=== PATIENT | male | born 1935 | race Caucasian/White ===

== ENCOUNTER 2021-10-06 13:44 | Emergency (ER) | payer MEDICARE, SELFPAY ==
[2021-10-06 14:04] VITALS: BP 108/67; PULSE 94; RESP 16; TEMP 36.9; O2SAT 95
[2021-10-06 15:46] LABS: Basophils % 0.4 %; Eosinophils % 0.4 %; Hematocrit 37.5 % (42.0-52.0); Lymphocytes # 1.6 10^3/uL (0.8-4.8); Mean Corpuscular HGB Conc 34.7 g/dL (30.0-36.0); Mean Corpuscular Hemoglobin 33.9 pg (28.0-34.0); Mean Corpuscular Volume 97.7 fl (80-94); Mean Platelet Volume 8.5 fL (7.4-10.4); Monocytes # 0.7 10^3/uL (0.2-0.9); Monocytes % 7.9 %; Neutrophils # 6.01 10^3/uL (1.8-7.7); Neutrophils % 71.9 %; Nucleated Red Blood Cells % 0 %; Platelet Count 246 10^3/cmm (130-400); Red Blood Count 3.84 10^6/uL (4.1-5.3); Red Cell Distribution Width 12.4 % (12.1-15.1); White Blood Count 8.4 10^3/uL (4.0-10.0)
[2021-10-06 15:55] LABS: Alanine Aminotransferase 22 U/L (0-41); Albumin Level 2.7 g/dL (3.5-5.2); Alkaline Phosphatase 76 IU/L (40-130); Anion Gap 14.5 (5-19); Aspartate Amino Transferase 31 U/L (0-40); Blood Urea Nitrogen 10 mg/dL (8-23); Calcium 7.6 mg/dL (8.5-10.5); Carbon Dioxide 25 mmol/L (22-29); Chloride 101 mmol/L (98-107); Glucose 67 mg/dL (65-115); Osmolality Calculated 281 mOsm/kg (285-295); Potassium 3.5 mmol/L (3.5-5.1); Sodium 137 mmol/L (136-145); Total Bilirubin 0.6 mg/dL (0.15-1.2); Total Protein 5.7 g/dL (6.6-8.7)
[2021-10-06 16:00] LABS: Lactate (Lactic Acid level) 1.5 mmol/L (0.5-2.2)
== END 2021-10-06 17:23 | disposition left against medical advice (07) ==
LOC: ER 13:51
PROVIDERS: Physician Assistant; Emergency Provider Family Medicine
DX: Z53.21 Procedure and treatment not carried out due to patient leaving prior to being seen by health care provider (principal)
CPT/HCPCS: 36415; 80053; 83605; 85025

== ENCOUNTER 2024-06-26 11:00 | Observation (INO) | payer MEDICARE, SELFPAY ==
[2024-06-26] VITALS (9 sets, daily range): BP systolic 117–141; BP diastolic 55–80; PULSE 84–93; RESP 14–18; TEMP 36.5–36.8; O2SAT 93–98
--- NOTE | 2024-06-26 11:04 | CT_ITS ---
WS: [id number] CT CHEST, ABDOMEN AND PELVIS WITH CONTRAST HISTORY: fall TECHNIQUE: Contiguous 5 mm axial imaging performed through the chest, abdomen and pelvis with IV cont rast, oral contrast has not been provided. Coronal and sagittal reformats chest. Coronal and sagittal reformats through the abdomen and pelvis. All CT scans at [facility] use at least one of the se dose optimization techniques: automated exposure control; mA and/or kV adjustment per patient size (includes targeted exams where dose is matched to clinical indication); or iterative reconstruction. CONTRAST: Omnipaque 350; 100 mL IV. DLP: 901.22 mGy.cm COMPARISON: None available. Chest CT: Lungs are distorted by rotation. Multi lobar areas of opacification and nodularity. No pneu mothorax or pulmonary contusion. No significant pleural effusion. Heart is slightly enlarged with mil d atherosclerosis aorta. No adenopathy. Fluid in the esophagus distal to the carey. Bones are osteop enic. No acute appearing rib fractures are identified. Increase in thoracic kyphosis. Severe plana co mpression fracture at T9 and 50% compression fracture at T11. Age-indeterminate but no paravertebral soft tissue hematomas or edema identified to suggest these are acute. Abdomen CT: Normal appearance of the liver and spleen and gallbladder. Mildly atrophic pancreas. No a drenal mass. No renal obstruction. Moderate atherosclerosis aorta. No GI tract obstruction. No mesent alan injury. No free fluid or adenopathy. Pelvic CT: Well-distended urinary bladder. Artifact through the pelvis secondary to the LEFT hip pros thesis. Partially healed fracture LEFT inferior pubic rami. Severe compression fracture at L2 and L4. Age-indeterminate but no surrounding edema. Patient is sign ificantly rotated causing deformity of the spine and abdominal structures. CT/CT chest abdpel w/*[id number] IMPRESSION: 1. No acute abdominal or pelvic abnormalities are identified. 2. Bilateral pulmonary opacifications, multi lobar. May be related to pneumoni a or early neoplasm. This can be followed up after treatment for pneumonia in 3 to 4 months if clinically thought necessary. 3. Multiple thoracic and lumbar spine fractures are age-indeterminate. These h ave not been imaged before but there is no adjacent edema or hematoma identifie d. The most concerning is at the L2 level. No significant retropulsion. No abida tional fractures. 4. No edema or mesenteric injury identified.
--- NOTE | 2024-06-26 11:04 | XRR_ITS ---
PROCEDURE INFORMATION: Exam: XR Chest Exam date and time: 06/26/2024 12:35 PM Age: 88 years old Clinical indication: Injury or trauma; Fall; Blunt trauma (contusions or hematomas); Additional info: AMS TECHNIQUE: Imaging protocol: Radiologic exam of the chest. Views: 1 view. COMPARISON: No relevant prior studies available. FINDINGS: Lungs: Coarsened pulmonary interstitium. Suboptimal pulmonary expansion with associated accentuation of bronchovascular markings. Pleural spaces: No pleural effusion. Heart/Mediastinum: Cardiomediastinal contours accentuated by low lung volumes and AP technique. Bones/joints: Right 7th lateral rib fracture. There are other possible rib fractures with assessment limited by bony overlap. Other findings: Patient is rotated limiting assessment. XR/XR chest 1V portable [id number] IMPRESSION: Right lateral 7th rib fracture with possible other rib fractures as well. Dedicated rib views or CT recommended further assessment if clinically warranted. No acute cardiopulmonary disease given technique.
--- NOTE | 2024-06-26 11:04 | CT_ITS ---
WS: [id number] CT CERVICAL SPINE HISTORY: fall TECHNIQUE: Contiguous 2.0 mm axial imaging performed through the entire cervical spine. Sagittal and coronal reformats also performed. All CT scans at [facility] use at least one of these dose o ptimization techniques: automated exposure control; mA and/or kV adjustment per patient size (include s targeted exams where dose is matched to clinical indication); or iterative reconstruction. DLP: 1796.54 mGy.cm COMPARISON: None available. Marked increase in the cervical lordosis. Craniocervical junction is normal. Facet joints are narrowe d but otherwise normally aligned. 2 mm retrolisthesis of C3. No acute fracture. Small osteophytes katie ng the anterior endplates. Bilateral facet joint arthropathy. No acute disc protrusions or compromise of the central canal. Lung apices are clear. Paraspinal soft tissues are normal. CT/CT cervical spin wo con* [id number] IMPRESSION: No acute cervical spine fracture. Marked increase in lordosis.
--- NOTE | 2024-06-26 11:04 | CT_ITS ---
WS: [id number] CT HEAD NONCONTRAST HISTORY: fall TECHNIQUE: Contiguous axial imaging performed through the brain in 2.5 mm imaging. Bone and soft tiss ue windows. Sagittal and coronal reformats reviewed. All CT scans at [facility] use at least one of these dose optimization techniques: automated exposure control; mA and/or kV adjustment per pa tient size (includes targeted exams where dose is matched to clinical indication); or iterative recon struction. DLP: 1796.54 mGy.cm COMPARISON: 07/10/2011 No acute intracranial hemorrhage, midline shift or mass effect. 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 Severe cerebellar atrophy. Ventricles: Normal size with no hydrocephalus. No inferior displacement of the cerebellar tonsils. Paranasal sinuses: As visualized are clear. Mastoid air cells: Well pneumatized. Calvarium and scalp: Skull is intact with no soft tissue edema or swelling. Increased density in the LEFT globe. Suspect prosthesis. CT/CT head wo con* [id number] IMPRESSION: 1. No acute intracranial hemorrhage or edema. 2. 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 No acute process identified.
--- NOTE | 2024-06-26 11:04 | XRR_ITS ---
PROCEDURE INFORMATION: Exam: XR Right Hip Exam date and time: 06/26/2024 12:34 PM Age: 88 years old Clinical indication: Injury or trauma; Fall; Blunt trauma (contusions or hematomas); Bilateral; Hip; Additional info: Fall, changed to bilateral charge TECHNIQUE: Imaging protocol: Radiologic exam of the right hip. Views: 4 or more views of hip with pelvis when performed. COMPARISON: No relevant prior studies available. FINDINGS: Bones/joints: Mild degenerative change of the right hip. Left bipolar hip replacement and incompletely imaged fixation plate and screws of the femur extending into the shaft. Indeterminate left inferior pubic ramus given obliquities presented. No definite acute fracture seen. Soft tissues: Vascular calcifications noted in the soft tissues. XR/XR hip BI 3-4V wo/w pel [id number] IMPRESSION: No definite acute fracture seen. Indeterminate left inferior pubic ramus secondary to technique. Repeat left hip views could be performed for further assessment if clinically warranted.
--- NOTE | 2024-06-26 11:07 | ED_ITS ---
HPI - Fall 2 General: Chief Complaint: Extremity Injury, Lower Stated Complaint: left hip pain, fall Time Seen by Provider: 06/26/24 11:00 Source: EMS Mode of arrival: EMS Limitations: altered mental status History of Present Illness: 88-year-old male is here from home after a fall per EMS he had fell and has been quite confused he did appear to have bilateral hip pain per EMS family states he has been not eating or drinking throughout the week and is increasingly became more altered. At his baseline he states that he gets up and takes care of himself. He is awake but will not answer any questions is extremely confused. Related Data Home Medications Medication Instructions Recorded Confirmed ibuprofen 200 mg tablet (Advil) 200 mg PO Q6H PRN prn pain 06/26/24 06/26/24 oxycodone-acetaminophen 5 mg-325 1 tab PO PRN 06/26/24 06/26/24 mg tablet Allergies Allergy/AdvReac Type Severity Reaction Status Date / Time No Known Allergies Allergy Verified 10/06/21 14:07 Review of Systems 2 General: Reports: ROS unobtainable due to mental status Physical Exam 2 Const: COMMON NORMALS: negative for patient oriented x3 GENERAL APPEARANCE: frail appearing ORIENTATION/CONSCIOUSNESS: not oriented to person, not oriented to place and not oriented to time HENMT: COMMON NORMALS: normocephalic and atraumatic HEAD & SCALP: n ormocephalic and atraumatic Eye: COMMON NORMALS: Equal, round and reactive pupils present and EOMs intact bilaterally PUPIL: Yes Equal, round and reactive pupils present Neck/C-Spine: COMMON NORMALS: full ROM and supple Chest: COMMONS NORMALS: normal inspection of the chest Resp: COMMON NORMALS: normal respiratory effort, No retractions, No use of accessory muscles and clear to auscultation bilaterally AUSCULTATION: clear to auscultation bilaterally Cardio: COMMON NORMALS: regular rate, regular rhythm and No murmurs present (Cardio) RATE: regular rate RHYTHM: regular rhythm GI: COMMON NORMALS: Normal to inspection, nondistended, normoactive bowel sounds present, Soft to palpation, non-tender and no masses PALPATION: Yes Soft to palpation Extremity: COMMON NORMALS: normal to inspection and full ROM Neuro: COMMON NORMALS: negative for patient oriented x3 S ENSORIUM/ORIENTATION: No oriented to person, No oriented to place and No oriented to time Psych: COMMON NORMALS: cooperative; negative for mental status grossly normal Skin: COMMON NORMALS: no rashes or lesions noted and no wounds GENERAL SKIN EXAM: no rashes or lesions noted Course 2 Vital Signs: Vital signs: Vital Signs Temperature 98.3 F 06/26/24 11:02 Pulse Rate 93 06/26/24 15:35 Respiratory Rate 15 06/26/24 12:53 Blood Pressure 119/55 06/26/24 15:35 Pulse Oximetry 93 06/26/24 15:35 Oxygen Delivery Me thod Room Air 06/26/24 15:35 MDM - Fall Medical Decision Making Patient presents here with altered mental status he has been quite altered here has had weakness along with falls CT scan of his head was normal CT abdomen chest showed lumbar and thoracic spine fracture did speak to the hospitalist will admit at this time for his altered mental status. Medical Records I reviewed the patient's medical records. Lab Data I reviewed the patient's lab results. 06/26/24 13:10 06/26/24 13:10 Radiology Impressions Cervical Spine CT 06/26/24 11:04 IMPRESSION: No acute cervical spine fracture. Marked increase in lordosis. Chest X-Ray 06/26/24 11:04 IMPRESSION: Right lateral 7th rib fracture with possible other rib fractures as well. Dedicated rib views or CT recommended further assessment if clinically warranted. No acute cardiopulmonary disease given technique. Chest/Abdomen/Pelvis CT 06/26/24 11:04 IMPRESSION: 1. No acute abdominal or pelvic abnormalities are identified. 2. Bilateral pulmonary opacifications, multi lobar. May be related to pneumonia or early neoplasm. This can be followed up after treatment for pneumonia in 3 to 4 months if clinically thought necessary. 3. Multiple thoracic and lumbar spine fractures are age-indeterminate. These have not been imaged before but there is no adjacent edema or hematoma identified. The most concerning is at the L2 level. No significant retropulsion. No additional fractures. 4. No edema or mesenteric injury identified. Head CT 06/26/24 11:04 IMPRESSION: 1. No acute intracranial hemorrhage or edema. 2. 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 No acute process identified. Hip/Pelvis X-Ray 06/26/24 11:04 IMPRESSION: No definite acute fracture seen. Indeterminate left inferior pubic ramus secondary to technique. Repeat left hip views could be performed for further assessment if clinically warranted. Laboratory Results WBC 9.54 10^3/uL (3.29-11.43) 06/26/24 13:10 RBC 4.38 10^6/uL (3.85-5.65) 06/26/24 13:10 Hgb 14.40 g/dL (11.27-16.99) 06/26/24 13:10 Hct 42.3 % (37-53) 06/26/24 13:10 MCV 96.6 fl (82-101) 06/26/24 13:10 MCH 32.9 pg (27-33) 06/26/24 13:10 MCHC 34.0 g/dL (30-55) 06/26/24 13:10 RDW 12.6 % (12.1-15.1) 06/26/24 13:10 Plt Count 294 10^3/cmm (157-399) 06/26/24 13:10 MPV 8.5 fL (7.4-10.4) 06/26/24 13:10 Neut % (Auto) 78.5 % 06/26/24 13:10 Lymph % (Auto) 8.9 % 06/26/24 13:10 [place] % (Auto) 11.7 % 06/26/24 13:10 Eos % (Auto) 0.2 % 06/26/24 13:10 Baso % (Auto) 0.3 % 06/26/24 13:10 Neut # (Auto) 7.48 10^3/uL (1.8-7.7) 06/26/24 13:10 Lymph # (Auto) 0.9 10^3/uL (0.8-4.8) 06/26/24 13:10 [place] # (Auto) 1.1 10^3/uL (0.2-0.9) H 06/26/24 13:10 Eos # (Auto) 0.0 10^3/uL (0.0-0.8) 06/26/24 13:10 Baso # (Auto) 0.0 10^3/uL (0.0-0.1) 06/26/24 13:10 Nucleated RBC % (auto) 0 % 06/26/24 13:10 Nucleated RBCs # 0.0 /100WBC 06/26/24 13:10 PT 14.40 SECONDS (12.1-14.9) 06/26/24 13:10 INR 1.08 (0.8-1.2) 06/26/24 13:10 Sodium 139 mmol/L (136-145) 06/26/24 13:10 Potassium 4.5 mmol/L (3.5-5.1) 06/26/24 13:10 Chloride 104 mmol/L (98-107) 06/26/24 13:10 Carbon Dioxide 23 mmol/L (22-29) 06/26/24 13:10 Anion Gap 16.5 (5-19) 06/26/24 13:10 BUN 13 mg/dL (8-23) 06/26/24 13:10 Creatinine 0.5 mg/dL (0.7-1.2) L 06/26/24 13:10 GFR Calculation Not Reportable 06/26/24 13:10 Glucose 95 mg/dL (65-115) 06/26/24 13:10 Calculated Osmolality 288 mOsm/kg (285-295) 06/26/24 13:10 Calcium 8.4 mg/dL (8.5-10.5) L 06/26/24 13:10 Magnesium 1.9 mg/dL (1.7-2.3) 06/26/24 13:10 Total Bilirubin 0.5 mg/dL (0.15-1.2) 06/26/24 13:10 AST 46 U/L (0-40) H 06/26/24 13:10 ALT 17 U/L (0-41) 06/26/24 13:10 Alkaline Phosphatase 62 U/L (40-130) 06/26/24 13:10 Total Protein 6.6 g/dL (6.6-8.7) 06/26/24 13:10 Albumin 3.1 g/dL (3.5-5.2) L 06/26/24 13:10 Globulin 3.5 g/dL (1.3-4.6) 06/26/24 13:10 Lipase 15 U/L (13-60) 06/26/24 13:10 TSH 2.27 uIU/mL (0.27-4.20) 06/26/24 13:10 Urine Color Yellow (Yellow) 06/26/24 12:03 Urine Appearance Clear (CLEAR) 06/26/24 12:03 Urine pH 7 (5-7) 06/26/24 12:03 Ur Specific [place] 1.015 (1.005-1.030) 06/26/24 12:03 Urine Protein Neg (Negative) 06/26/24 12:03 Urine Glucose (UA) Norm (Normal) 06/26/24 12:03 Urine Ketones 1+ (Negative) H 06/26/24 12:03 Urine Blood Neg (Negative) 06/26/24 12:03 Urine Nitrate Negative (Negative) 06/26/24 12:03 Urine Bilirubin Neg (Negative) 06/26/24 12:03 Urine Urobilinogen Norm mg/dL (Negative) 06/26/24 12:03 Ur Leukocyte Esterase Negative (Negative) 06/26/24 12:03 Amorphous Sediment Not Reportable 06/26/24 12:03 Urine Opiates Screen Negative ng/mL (Negative) 06/26/24 12:03 Ur Barbiturates Screen Negative ng/mL (Negative) 06/26/24 12:03 Ur Phencyclidine Scrn Negative ng/mL (Negative) 06/26/24 12:03 Ur Amphetamines Screen Negative ng/mL (Negative) 06/26/24 12:03 U Benzodiazepines Scrn Negative ng/mL (Negative) 06/26/24 12:03 Urine Cocaine Screen Negative ng/mL (Negative) 06/26/24 12:03 U Marijuana (THC) Screen Positive ng/mL (Negative) H 06/26/24 12:03 All radiology interpretation(s) finalized by discharge Discharge Plan Discharge Patient Disposition: Admitted As Inpatient Clinical Impression: Altered mental status, Weakness, Fall, Fracture of thoracic spine Condition: Stable Prescriptions: No Action oxycodone-acetaminophen 5-325 mg tablet 1 tab PO PRN Advil 200 mg Tablet 200 mg PO Q6H PRN (Reason: prn pain ) Coding Level of Care Code ED Parlor Maid for Julisa Dodd
[2024-06-26] MEDS: sodium chloride 0.9% 1,000 ML 999 ML IV (11:42)
--- NOTE | 2024-06-26 12:14 | PC.NURSE ---
pt continues to rip off vs equipment.
[2024-06-26 12:20] LABS: Add Urine Microscopic? NO
--- NOTE | 2024-06-26 12:23 | PC.NURSE ---
this nurse went to do a straight cath, pt pullup was soaked with foul smelling urine, pt was changed and put into dry brief. pt then used handheld urinal and was continent of urine for one void at this time.
[2024-06-26 12:26] LABS: Bilirubin Urine Neg (Negative); Blood Urine Neg (Negative); Glucose Urine UA Norm (Normal); Ketones Urine 1+ (Negative); Leukocyte Esterase Urine Negative (Negative); Nitrate Urine Negative (Negative); Protein Urine Neg (Negative); Specific Gravity, Urine 1.015 (1.005-1.030); Urine Appearance Clear (CLEAR); Urine Color Yellow (Yellow); Urobilinogen Urine Norm (Negative); pH Urine 7 (5-7)
[2024-06-26 12:27] LABS: Charge for UA Resulting for Rev
[2024-06-26] MEDS: ondansetron 2 mg/ML SDV 2 mL 4 MG IVP (12:49)
[2024-06-26] MEDS: morphine 4 mg/mL SDV 1 mL IVP (12:50)
[2024-06-26 13:16] LABS: Basophils % 0.3 %; Eosinophils % 0.2 %; Hematocrit 42.3 % (37-53); Lymphocytes # 0.9 10^3/uL (0.8-4.8); Lymphocytes % 8.9 %; Mean Corpuscular Hemoglobin 32.9 pg (27-33); Mean Corpuscular Volume 96.6 fl (82-101); Mean Platelet Volume 8.5 fL (7.4-10.4); Monocytes # 1.1 10^3/uL (0.2-0.9); Monocytes % 11.7 %; Neutrophils # 7.48 10^3/uL (1.8-7.7); Neutrophils % 78.5 %; Nucleated Red Blood Cells % 0 %; Platelet Count 294 10^3/cmm (157-399); Red Blood Count 4.38 10^6/uL (3.85-5.65); Red Cell Distribution Width 12.6 % (12.1-15.1); White Blood Count 9.54 10^3/uL (3.29-11.43)
[2024-06-26 13:30] LABS: INR 1.08 (0.8-1.2)
[2024-06-26 13:38] LABS: Alanine Aminotransferase 17 U/L (0-41); Albumin Level 3.1 g/dL (3.5-5.2); Alkaline Phosphatase 62 U/L (40-130); Blood Urea Nitrogen 13 mg/dL (8-23); Calcium 8.4 mg/dL (8.5-10.5); Carbon Dioxide 23 mmol/L (22-29); Chloride 104 mmol/L (98-107); Globulin 3.5 g/dL (1.3-4.6); Glucose 95 mg/dL (65-115); Lipase 15 U/L (13-60); Magnesium 1.9 mg/dL (1.7-2.3); Osmolality Calculated 288 mOsm/kg (285-295); Sodium 139 mmol/L (136-145); Thyroid Stimulating Hormone 2.27 uIU/mL (0.27-4.20); Total Bilirubin 0.5 mg/dL (0.15-1.2); Total Protein 6.6 g/dL (6.6-8.7)
[2024-06-26 13:39] LABS: Anion Gap 16.5 (5-19); Aspartate Amino Transferase 46 U/L (0-40); Potassium 4.5 mmol/L (3.5-5.1)
[2024-06-26] MEDS: iohexol 350 mg/mL 500 mL Btl (per mL) IV (14:33)
[2024-06-26 16:04] LABS: Amphetamines Screen Urine Negative (Negative); Barbiturates Screen Urine Negative (Negative); Benzodiazepines Screen Urine Negative (Negative); Cocaine Screen Urine Negative (Negative); Opiate Screen Urine Negative (Negative); PCP Screen Urine Negative (Negative); THC Screen Urine Positive (Negative)
[2024-06-26] MEDS: cefTRIAXone 1,000 mg SDV 1000 MG IVP (16:54)
--- NOTE | 2024-06-26 16:58 | P.HP_ITS ---
Providers/Chief Complaint 2 Admitting Physician: Jake Monte MD Chief Complaint: left hip pain, fall History of Present Illness Jeff Cr is a 88 year old male formerly on hospice a couple of different times who was found down, at home around 6 AM. He seemed to be complaining of severe abdominal pain, but family could not tell. He certainly seem like he was in significant pain when they tried to move him. He had been sick about 3 weeks ago, and since then had more confusion than usual. He did have fevers with the COVID he had 3 weeks ago, but has not had any recently. No other falls other than the one that was not witnessed for which she was found this morning. They report no blood in stools, black or tarry stools. Daughter who is with him indicates she is his guardian. She reports he is more confused now as he got some morphine in the emergency department, and possibly some fentanyl in route. She does not think he is in any pain right now. In the emergency department he got some pain medicine, and an injection of ceftriaxone and Zithromax for possible pneumonia. Review of Systems 2 General: Reports: 10 or more systems reviewed and unremarkable except in HPI and below Medications/Allergies Home Medications Medication Instructions Recorded Confirmed Last Taken Type ibuprofen 200 mg tablet (Advil) 200 mg PO Q6H PRN prn pain 06/26/24 06/26/24 Unknown History oxycodone-acetaminophen 5 mg-325 1 tab PO PRN 06/26/24 06/26/24 Unknown History mg tablet Allergies Allergy/AdvReac Type Severity Reaction Status Date / Time No Known Allergies Allergy Verified 10/06/21 14:07 PFSH Acute 2 PFSH: Medical History History of alcohol use History of hip fracture Surgical History History of hernia repair Social History (Updated 06/26/24 @ 17:05 by Jake Monte MD) Smoking and tobacco/nicotine status: current every day tobacco/nicotine user smokeless tobacco Alcohol intake: current Vitals/I&O/Wt Last Vital Signs Temp 98.3 F 06/26/24 11:02 Pulse 93 06/26/24 15:35 Resp 15 09/19/24 12:53 BP 119/55 06/26/24 15:35 Pulse Ox 93 06/26/24 15:35 O2 Del Method Room Air 06/26/24 15:35 06/26/24 06/26/24 06/26/24 06:59 14:59 22:59 Intake Total 1000 / 1000 Balance 1000 / 1000 Physical Exam 2 Narrative: General Exam is white male, smiling, who does not seem to be in any pain currently laying in bed HEENT: Right pupil normal. Left esotropia. I suspect he has had surgery or intervention on this side or injury. Oropharynx clear, a dentulous Neck is supple Cardiovascular regular rate and rhythm with 2/6 systolic murmur Lungs clear no wheezing or crackles Abdomen is soft. I do not note any obvious tenderness but certainly difficult to tell exam is an incontinent male Extremities no cyanosis clubbing or edema Skin no rash Neuro no obvious focal deficits Data 06/26/24 13:10 06/26/24 13:10 Other Labs: I have ordered a B12 INR normal TSH normal LFTs normal with exception of AST 46 Calcium 8.4, albumin 3.1 Lipase 15 Urinalysis negative Urine drug screen positive for marijuana Hip and pelvis x-ray no definite acute fracture although indeterminate left inferior pubic ramus Head CT no acute findings, severe cerebellar atrophy Chest abdomen pelvis CT, bilateral pulmonary opacities cannot rule out pneumonia and multiple thoracic and lumbar spine compression fractures and fractures. A distended bladder is noted. Chest x-ray no infiltrate per my read CT cervical spine no fracture Blood culture was done Micro: Microbiology 06/26/24 16:15 Blood Culture - Preliminary Blood SPECIMEN COLLECTED 06/26/24 16:12 Blood Culture - Preliminary Blood SPECIMEN COLLECTED A&P Assessment and plan (1) Fall: Check CK Gentle hydration Fall precautions (2) Pain: Was complaining of abdominal or back pain but difficult to delineate now is confused after narcotic. Workup negative other than compression fractures of the thoracic and lumbar spine Follow expectantly, oxycodone for pain, Dilaudid for breakthrough pain. Therapy consultation At this point I do not think a back brace would make him hurt less (3) Thoracic compression fracture: Thoracic compression fractures, unknown age, no evidence of bone marrow edema Pain control as below (4) Lumbar vertebral fracture: Unknown age, worst at L2 No evidence of bone marrow edema Cannot completely rule out acute fracture Family not interested in surgery Pain control with Oxy IR, Dilaudid for breakthrough pain. (5) History of alcohol use: Patient with history of significant alcohol use. It is difficult to quantify his use currently. [facility] protocol Amended Ativan dose down (6) Advanced age: Plan Pulmonary infiltrates. This is likely related to his recent COVID. Check procalcitonin level. If negative, will not continue antibiotics started in the ER. Allow natural Lovenox for DVT prophylaxis Attestations 2 Medical Necessity Statement*: Will require less than 2 midnight stay for evaluation of pain, therapy evaluation, treatment of pain, determination of family expectations Diagnoses Fall W19.XXXA Pain R52 Thoracic compression fracture S22.000A Lumbar vertebral fracture S32.009A History of alcohol use Z87.898 Advanced age R54 Time Spent (min) 55
[2024-06-26] MEDS: azithromycin 500 MG in sodium chloride 0.9% 250 ML 250 MG IV (16:59)
[2024-06-26 17:31] LABS: Creatine Phosphokinase 991 U/L (39-308)
[2024-06-26 17:34] LABS: Procalcitonin 0.06 ng/mL (0-0.5)
[2024-06-26] MEDS: enoxaparin 40 mg/0.4 mL Syringe SUBCUT (18:17)
[2024-06-26] MEDS: sodium chloride 0.9% 1,000 ML 100 ML IV (18:17)
[2024-06-26] MEDS: acetaminophen 325 mg Tablet 650 MG PO (18:18)
[2024-06-26] MEDS: sennosides 8.6 mg Tablet 17.2 MG PO (18:18)
[2024-06-26 18:23] LABS: Vitamin B12 402 pg/mL (232-1245)
[2024-06-27] VITALS: BP 135/68; PULSE 83; RESP 14; TEMP 36.9; O2SAT 94
[2024-06-27 04:00] VITALS: BP 158/90; PULSE 78; RESP 16; TEMP 36.4; O2SAT 94
[2024-06-27 05:28] LABS: Basophils # 0.1 10^3/uL (0.0-0.1); Basophils % 0.8 %; Eosinophils # 0.1 10^3/uL (0.0-0.8); Eosinophils % 2.1 %; Hematocrit 45.8 % (37-53); Lymphocytes # 1.1 10^3/uL (0.8-4.8); Lymphocytes % 17.8 %; Mean Corpuscular HGB Conc 33.2 g/dL (30-55); Mean Corpuscular Hemoglobin 32.3 pg (27-33); Mean Corpuscular Volume 97.2 fl (82-101); Mean Platelet Volume 8.7 fL (7.4-10.4); Monocytes # 0.9 10^3/uL (0.2-0.9); Monocytes % 15.2 %; Neutrophils # 3.91 10^3/uL (1.8-7.7); Neutrophils % 63.8 %; Nucleated Red Blood Cells % 0 %; Platelet Count 317 10^3/cmm (157-399); Red Blood Count 4.71 10^6/uL (3.85-5.65); Red Cell Distribution Width 12.8 % (12.1-15.1); White Blood Count 6.13 10^3/uL (3.29-11.43)
[2024-06-27 05:58] LABS: Alanine Aminotransferase 19 U/L (0-41); Albumin Level 3.3 g/dL (3.5-5.2); Alkaline Phosphatase 68 U/L (40-130); Anion Gap 11.9 (5-19); Aspartate Amino Transferase 55 U/L (0-40); Blood Urea Nitrogen 8 mg/dL (8-23); Calcium 8.8 mg/dL (8.5-10.5); Carbon Dioxide 28 mmol/L (22-29); Chloride 101 mmol/L (98-107); Creatinine Clr Calc Pharmacy 45.7817; Globulin 3.9 g/dL (1.3-4.6); Glucose 76 mg/dL (65-115); Osmolality Calculated 281 mOsm/kg (285-295); Potassium 3.9 mmol/L (3.5-5.1); Sodium 137 mmol/L (136-145); Total Bilirubin 0.4 mg/dL (0.15-1.2); Total Protein 7.2 g/dL (6.6-8.7)
[2024-06-27 06:15] LABS: Creatine Phosphokinase 787 U/L (39-308)
[2024-06-27] MEDS: sodium chloride 0.9% 1,000 ML 100 ML IV (06:33)
[2024-06-27 08:00] VITALS: BP 151/76; PULSE 81; RESP 18; TEMP 36.4; O2SAT 96
[2024-06-27] MEDS: folic acid 1 mg Tablet PO (08:26)
[2024-06-27] MEDS: sennosides 8.6 mg Tablet 17.2 MG PO (08:26)
[2024-06-27] MEDS: thiamine 100 mg Tablet PO (08:26)
[2024-06-27 08:27] VITALS: RESP 16
[2024-06-27] MEDS: oxyCODONE 5 mg IR Tab/Cap PO (08:27)
[2024-06-27] MEDS: multivitamin therapeutic Tablet 1 TAB PO (08:27)
--- NOTE | 2024-06-27 11:01 | P.DS_ITS ---
Discharge Providers Date of Admission: 06/26/24 16:31 Date of Discharge: June 27, 2024 Attending Provider at Admission: Jake Monte MD Attending Provider at Discharge: Jake Monte MD Diagnoses at Discharge Discharge Diagnosis (1) Fall: Status: Acute (2) Pain: Status: Acute (3) Thoracic compression fracture: Status: Acute (4) Lumbar vertebral fracture: Status: Acute (5) History of alcohol use: Status: Acute (6) Advanced age: Status: Acute Reason for Visit Reason for Visit: left hip pain, fall Hospital Course Hospital Course Patient is an 88-year-old white male who was found down at home. He has very poor health, and has been on hospice twice. It was unknown if he had any significant injury but there was concern he was in significant pain. He received some pain medication in emergency department, and there was concern of him being altered. He got a CT scan of his head, neck, chest and abdomen without any clear delineation of an acute process. Multiple compression fractures were noted in his vertebral region, and it could not be guaranteed that anywhere near. CK was elevated consistent with mild rhabdo. He was admitted under an observation status, and closely monitored for pain. He was given some IV fluids for rehydration. The following day his CK had decreased. He had required occasional doses of p.o. pain medication. He was alert, and able to talk as well as eat. Physical therapy had seen him, and recommended Branden lift for continued care at home where family has private caregivers. At this point goal of care is to go back home, with private caregivers and have pain control. This has been achieved in the hospital. Family/guardian reported he would not want any significant surgeries or major interventions considering his age of 88 and comorbidities. He should follow-up with his primary care provider in 3 to 5 days. A prescription for oxycodone immediate release to use every 4 hours as needed for pain was given. Bladder scan was done in the hospital showing some urinary retention, but not significant enough to place a chronic indwelling catheter. Physical Exam Narrative: General Exam no distress Neck is supple Cardiovascular regular rate and rhythm Lungs clear Abdomen soft Extremities no cyanosis clubbing or edema Neuro: Makes good eye contact, hard of hearing, moves all extremities, vocalizes some wishes. Discharge Data Studies Completed and Pending Completed Studies During Hospitalization Category Date Time Status CT cervical spin wo con* [id number] Stat Cat Scan 06/26/24 11:[address] chest abdpel w/*[id number] Stat Cat Scan 06/26/24 11:[address] head wo con* [id number] Stat Cat Scan 06/26/24 11:04 Completed XR chest 1V portable [id number] Stat Exams 06/26/24 11:04 Completed XR hip BI 3-4V wo/w pel [id number] Stat Exams 06/26/24 11:04 Completed Pending at discharge Category Date Time Status Blood Culture Stat Lab 06/26/24 16:15 Results Radiology Impressions Cervical Spine CT 06/26/24 11:04 IMPRESSION: No acute cervical spine fracture. Marked increase in lordosis. Chest X-Ray 06/26/24 11:04 IMPRESSION: Right lateral 7th rib fracture with possible other rib fractures as well. Dedicated rib views or CT recommended further assessment if clinically warranted. No acute cardiopulmonary disease given technique. Chest/Abdomen/Pelvis CT 06/26/24 11:04 IMPRESSION: 1. No acute abdominal or pelvic abnormalities are identified. 2. Bilateral pulmonary opacifications, multi lobar. May be related to pneumonia or early neoplasm. This can be followed up after treatment for pneumonia in 3 to 4 months if clinically thought necessary. 3. Multiple thoracic and lumbar spine fractures are age-indeterminate. These have not been imaged before but there is no adjacent edema or hematoma identified. The most concerning is at the L2 level. No significant retropulsion. No additional fractures. 4. No edema or mesenteric injury identified. Head CT 06/26/24 11:04 IMPRESSION: 1. No acute intracranial hemorrhage or edema. 2. 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 No acute process identified. Hip/Pelvis X-Ray 06/26/24 11:04 IMPRESSION: No definite acute fracture seen. Indeterminate left inferior pubic ramus secondary to technique. Repeat left hip views could be performed for further assessment if clinically warranted. Laboratory Results WBC 6.13 10^3/uL (3.29-11.43) 06/27/24 05:03 RBC 4.71 10^6/uL (3.85-5.65) 06/27/24 05:03 Hgb 15.20 g/dL (11.27-16.99) 06/27/24 05:03 Hct 45.8 % (37-53) 06/27/24 05:03 MCV 97.2 fl (82-101) 06/27/24 05:03 MCH 32.3 pg (27-33) 06/27/24 05:03 MCHC 33.2 g/dL (30-55) 06/27/24 05:03 RDW 12.8 % (12.1-15.1) 06/27/24 05:03 Plt Count 317 10^3/cmm (157-399) 06/27/24 05:03 MPV 8.7 fL (7.4-10.4) 06/27/24 05:03 Neut % (Auto) 63.8 % 06/27/24 05:03 Lymph % (Auto) 17.8 % 06/27/24 05:03 [place] % (Auto) 15.2 % 06/27/24 05:03 Eos % (Auto) 2.1 % 06/27/24 05:03 Baso % (Auto) 0.8 % 06/27/24 05:03 Neut # (Auto) 3.91 10^3/uL (1.8-7.7) 06/27/24 05:03 Lymph # (Auto) 1.1 10^3/uL (0.8-4.8) 06/27/24 05:03 [place] # (Auto) 0.9 10^3/uL (0.2-0.9) 06/27/24 05:03 Eos # (Auto) 0.1 10^3/uL (0.0-0.8) 06/27/24 05:03 Baso # (Auto) 0.1 10^3/uL (0.0-0.1) 06/27/24 05:03 Nucleated RBC % (auto) 0 % 06/27/24 05:03 Nucleated RBCs # 0.0 /100WBC 06/27/24 05:03 PT 14.40 SECONDS (12.1-14.9) 06/26/24 13:10 INR 1.08 (0.8-1.2) 06/26/24 13:10 Sodium 137 mmol/L (136-145) 06/27/24 05:03 Potassium 3.9 mmol/L (3.5-5.1) 06/27/24 05:03 Chloride 101 mmol/L (98-107) 06/27/24 05:03 Carbon Dioxide 28 mmol/L (22-29) 06/27/24 05:03 Anion Gap 11.9 (5-19) 06/27/24 05:03 BUN 8 mg/dL (8-23) 06/27/24 05:03 Creatinine 0.6 mg/dL (0.7-1.2) L 06/27/24 05:03 GFR Calculation Not Reportable 06/27/24 05:03 Glucose 76 mg/dL (65-115) 06/27/24 05:03 Calculated Osmolality 281 mOsm/kg (285-295) L 06/27/24 05:03 Calcium 8.8 mg/dL (8.5-10.5) 06/27/24 05:03 Magnesium 1.9 mg/dL (1.7-2.3) 06/26/24 13:10 Total Bilirubin 0.4 mg/dL (0.15-1.2) 06/27/24 05:03 AST 55 U/L (0-40) H 06/27/24 05:03 ALT 19 U/L (0-41) 06/27/24 05:03 Alkaline Phosphatase 68 U/L (40-130) 06/27/24 05:03 Creatine Kinase 787 U/L (39-308) H* 06/27/24 05:03 Total Protein 7.2 g/dL (6.6-8.7) 06/27/24 05:03 Albumin 3.3 g/dL (3.5-5.2) L 06/27/24 05:03 Globulin 3.9 g/dL (1.3-4.6) 06/27/24 05:03 Lipase 15 U/L (13-60) 06/26/24 13:10 Vitamin B12 402 pg/mL (232-1245) 06/26/24 13:10 Procalcitonin 0.06 ng/mL (0-0.5) 06/26/24 13:10 TSH 2.27 uIU/mL (0.27-4.20) 06/26/24 13:10 Urine Color Yellow (Yellow) 06/26/24 12:03 Urine Appearance Clear (CLEAR) 06/26/24 12:03 Urine pH 7 (5-7) 06/26/24 12:03 Ur Specific [place] 1.015 (1.005-1.030) 06/26/24 12:03 Urine Protein Neg (Negative) 06/26/24 12:03 Urine Glucose (UA) Norm (Normal) 06/26/24 12:03 Urine Ketones 1+ (Negative) H 06/26/24 12:03 Urine Blood Neg (Negative) 06/26/24 12:03 Urine Nitrate Negative (Negative) 06/26/24 12:03 Urine Bilirubin Neg (Negative) 06/26/24 12:03 Urine Urobilinogen Norm mg/dL (Negative) 06/26/24 12:03 Ur Leukocyte Esterase Negative (Negative) 06/26/24 12:03 Amorphous Sediment Not Reportable 06/26/24 12:03 Urine Opiates Screen Negative ng/mL (Negative) 06/26/24 12:03 Ur Barbiturates Screen Negative ng/mL (Negative) 06/26/24 12:03 Ur Phencyclidine Scrn Negative ng/mL (Negative) 06/26/24 12:03 Ur Amphetamines Screen Negative ng/mL (Negative) 06/26/24 12:03 U Benzodiazepines Scrn Negative ng/mL (Negative) 06/26/24 12:03 Urine Cocaine Screen Negative ng/mL (Negative) 06/26/24 12:03 U Marijuana (THC) Screen Positive ng/mL (Negative) H 06/26/24 12:03 Vitals Last Vital Signs Temp 97.6 F 06/27/24 08:00 Pulse 81 06/27/24 08:00 Resp 16 06/27/24 08:27 BP 151/76 06/27/24 08:00 Pulse Ox 96 06/27/24 08:00 O2 Del Method Room Air 06/27/24 08:00 Discharge Plan Discharge Patient Disposition: Home Condition: Stable Prescriptions: New oxycodone 5 mg Tablet 5 mg PO Q4H PRN (Reason: Severe Pain) Qty: 20 0RF sennosides [senna] 8.6 mg Tablet 17.2 mg PO BID Qty: 60 0RF Continued Advil 200 mg Tablet 200 mg PO Q6H PRN (Reason: prn pain ) Discontinued oxycodone-acetaminophen 5-325 mg tablet 1 tab PO PRN Discharge Orders: Discharge Order (Routine); Ordered 06/27/24 Ordered By: Jake Monte Discharge Diet: Usual diet Discharge Activity: Resume usual activity Patient Instructions: Opioid Safety Activity Restrictions/Additional Instructions: Take all medicine as prescribed. Use oxycodone sparingly. Follow-up with primary care provider in 3 to 5 days Discharge Attestations Time Spent in Discharge Care*: greater than 30 min Quality Metrics Clinical Quality Measures [ No reported AMI, CVA or VTE this stay] Coding Level of Care Code 95920 Total time (in minutes) for Discharge: 32 Diagnoses Fall W19.XXXA Pain R52 Thoracic compression fracture S22.000A Lumbar vertebral fracture S32.009A History of alcohol use Z87.898 Advanced age R54
[2024-06-27 12:00] VITALS: BP 147/79; PULSE 65; RESP 18; TEMP 36.1; O2SAT 96
[2024-06-27 13:57] VITALS: BP 147/79; PULSE 65; RESP 18; TEMP 36.1; O2SAT 96
== END 2024-06-27 13:58 | disposition home or self-care (01) ==
LOC: ER 16:31 → MEDSURG 19:55
PROVIDERS: Admitting Provider Internal Medicine; Emergency Provider Emergency Medicine; Visit Provider Internal Medicine
DX: S22.000A Wedge compression fracture of unspecified thoracic vertebra, initial encounter for closed fracture (principal); S32.009A Unspecified fracture of unspecified lumbar vertebra, initial encounter for closed fracture; W19.XXXA Unspecified fall, initial encounter; Z87.898 Personal history of other specified conditions; R54 Age-related physical debility; R33.9 Retention of urine, unspecified; Z86.16 Personal history of COVID-19; F17.200 Nicotine dependence, unspecified, uncomplicated; M25.552 Pain in left hip; M25.551 Pain in right hip
CPT/HCPCS: 36415; 70450; 71045; 71260; 72125; 73502; 73522; 74177; 80053; 80306; 81003; 82550; 82607; 83690; 83735; 84145; 84443; 85025; 85610; 87040; 96361; 96365; 96372; 96375; 97530; 99285; G0378; J0456; J0696; J1650; J2270; J2405; J3411; J7030; J7050